=== PATIENT | female | born 1965 | race Caucasian/White ===

== ENCOUNTER → 2019-08-09 | Emergency (ER) | payer OTHER ==
[~2019-08-09] VITALS: Ht 162.6 cm; Wt 93.0 kg
[~2019-08-09] MED LIST: ABILIFY10 MG; HYDRODIURIL12.5 MG; PRAVASTATIN SOD40 MG; TOPROL XL50 M1; VALSARTAN80 MG; VENLAFAXINE HCL75 M2; XANAX XR0.5 MG
== END | disposition home or self-care (01) ==
LOC: ER 16:34
DX: T78.1XXA Other adverse food reactions, not elsewhere classified, initial encounter (principal); R21 Rash and other nonspecific skin eruption